=== PATIENT | female | born 1965 | race Caucasian/White ===

== ENCOUNTER 2016-06-08 18:20 | Emergency (ER) | payer SELFPAY ==
[~2016-06-08] VITALS: Ht 182.9 cm; Wt 129.7 kg
[~2016-06-08 18:20] MED LIST: DOCU-144 PO; HYDR-905 PO; PANT40SU PO; TRAM100T27 PO
[2016-06-08 18:37] VITALS: Ht 182.9 cm; Wt 129.7 kg
== END 2016-06-08 20:51 | disposition left against medical advice (07) ==
LOC: E/R 18:20
DX: Z53.21 Procedure and treatment not carried out due to patient leaving prior to being seen by health care provider (principal)

== ENCOUNTER 2017-08-20 17:39 | Inpatient (IN) | END 2017-08-24 15:50 | disposition home or self-care (01) | DRG 354 ==

== ENCOUNTER 2018-11-14 11:38 | Emergency (ER) | payer OTHER ==
[~2018-11-14] VITALS: Ht 180.3 cm; Wt 126.2 kg
[~2018-11-14 11:38] MED LIST changes: +CYCL10TA7 PO; +DICL100G37 TOP; -DOCU-144 PO; +HYDR-3601 PO; +HYDR-4012 PO; -HYDR-905 PO; +LACT20SO2 PO; +LORA-444 PO; +LORA1TAB PO; +MELO15TA30 PO; +ONDA8TAB9 PO; -PANT40SU PO; +TRAZ-150 PO
[2018-11-14 11:59] VITALS: Ht 180.3 cm; Wt 126.2 kg
[2018-11-14] MEDS ORDERED: SOD CHLORIDE 0.9% 1,000 ML IV STA (12:36)
--- NOTE | 2018-11-14 12:43 | ERD ---
ER Documentation Chief Complaint Chief Complaint abdominal pain w/constipation x1wk HPI 53-year-old female with history of multiple abdominal and rectal surgeries presenting with lower abdominal pain that is sharp, intermittent, nonradiating, 10 out of 10. She has associated constipation for 1 week. She did pass gas yesterday but not today. Denies any nausea or vomiting. No fevers or chills. She does have problems with chronic constipation and has tried several medications at home without improvement. No dysuria or hematuria. No alleviating or exacerbating factors. ROS All systems reviewed and are negative except as per history of present illness. Medications Home Meds Active Scripts Lactulose* (Lactulose*) 20 Gm/30 Ml Solution, 20 GM PO Q6H for CONSTIPATION, #1 BOTTLE Prov:LEXI JORDAN MD 11/14/18 Reported Medications Diclofenac Sodium* (Voltaren* Gel) 1% -100 Gm Gel, 2 GM TOP PRN, #1 TUB 11/14/18 Ondansetron Hcl* (Zofran*) 8 Mg Tablet, 8 MG PO NEEDED PRN for NAUSEA AND OR VOMITING, TAB 11/14/18 Meloxicam* (Mobic*) 15 Mg Tablet, 15 MG PO DAILY, #30 TAB 11/14/18 Cyclobenzaprine Hcl* (Cyclobenzaprine Hcl*) 10 Mg Tablet, 10 MG PO NEEDED, #60 TAB 11/14/18 Hydrocodone/Acetaminophen ([place] 7.5-325 Tablet) 1 Each Tablet, 1 EACH PO BID MT N for PRN, TAB 11/14/18 Trazodone Hcl* (Desyrel*) 100 Mg Tab, 100 MG PO QHS, #30 TAB 11/14/18 Lorazepam* (Lorazepam*) 1 Mg Tablet, 1 MG PO BID PRN for ANXIETY, #30 TAB 11/14/18 Discontinued Reported Medications Lorazepam* (Ativan*) 2 Mg Tablet, 2 MG PO HS PRN for SLEEP, #30 TAB 08/19/17 Tramadol Hcl* (Tramadol* ER) 100 Mg Tab.er.24h, 100 MG PO DAILY, #30 TAB 08/19/17 Discontinued Scripts Hydrocodone Bit-Acetaminophen (Hydrocodone Bit-APAP) 5-325MG Tablet, 1 TAB PO Q6H PRN for PAIN LEVEL 6-10, #40 TAB Prov:RICHIE TORRES 08/24/17 Allergies Allergies: Coded Allergies: No Known Allergy (Unverified , 11/14/18) PMhx/Soc History of Surgery: Yes (hysterectomy, gallbladder sugery, vaginal repair, hernia repair) Anesthesia Reaction: No Hx Neurological Disorder: No Hx Respiratory Disorders: No Hx Cardiac Disorders: No Hx Psychiatric Problems: No Hx Miscellaneous Medical Probl: No Hx Alcohol Use: Yes Hx Substance Use: No Hx Tobacco Use: No FmHx Family History: No diabetes Physical Exam Vitals Vital Signs Date Temp Pulse Resp B/P (MAP) Pulse Ox O2 O2 Flow FiO2 Time Delivery Rate 11/14/18 98.2 75 18 127/83 98 Room Air 16:27 (98) 11/14/18 75 111/93 97 14:30 (99) 11/14/18 98.0 74 16 121/72 99 Room Air 13:30 (88) 11/14/18 97.6 101 18 146/102 97 11:59 (117) Physical Exam Const: No acute distress, well-appearing, nontoxic Head: Atraumatic Eyes: Normal Conjunctiva ENT: Normal External Ears, Nose and Mouth. Neck: Full range of motion. No meningismus. Resp: Clear to auscultation bilaterally Cardio: Regular rate and rhythm, no murmurs Abd: Soft, tender to palpation in the lower abdomen with no palpable masses. No rebound or guarding. Non distended. Normal bowel sounds Skin: No petechiae or rashes Back: No midline or flank tenderness Ext: No cyanosis, or edema Neur: Awake and alert Psych: Normal Mood and Affect Result Diagram: 11/14/18 1252 11/14/18 1252 Results 24 hrs Laboratory Tests Test 11/14/18 12:52 11/14/18 13:00 White Blood Count 9.0 10^3/ul Red Blood Count 4.60 10^6/ul Hemoglobin 13.2 g/dl Hematocrit 40.9 % Mean Corpuscular Volume 88.9 fl Mean Corpuscular Hemoglobin 28.7 pg Mean Corpuscular Hemoglobin Concent 32.3 g/dl Red Cell Distribution Width 12.6 % Platelet Count 274 10^3/UL Mean Platelet Volume 10.1 fl Immature Granulocytes % 0.400 % Neutrophils % 66.0 % Lymphocytes % 25.1 % Monocytes % 5.4 % Eosinophils % 2.4 % Basophils % 0.7 % Nucleated Red Blood Cells % 0.0 /100WBC Immature Granulocytes # 0.040 10^3/ul Neutrophils # 6.0 10^3/ul Lymphocytes # 2.3 10^3/ul Monocytes # 0.5 10^3/ul Eosinophils # 0.2 10^3/ul Basophils # 0.1 10^3/ul Nucleated Red Blood Cells # 0.0 10^3/ul Urine Color YELLOW Urine Clarity CLEAR Urine pH 6.0 Urine Specific [place] 1.009 Urine Ketones NEGATIVE mg/dL Urine Nitrite NEGATIVE mg/dL Urine Bilirubin NEGATIVE mg/dL Urine Urobilinogen NEGATIVE mg/dL Urine Leukocyte Esterase NEGATIVE [place]/ul Urine Hemoglobin NEGATIVE mg/dL Urine Glucose NEGATIVE mg/dL Urine Total Protein NEGATIVE mg/dl Sodium Level 143 mmol/L Potassium Level 4.3 mmol/L Chloride Level 109 mmol/L Carbon Dioxide Level 26 mmol/L Anion Gap 8 Blood Urea Nitrogen 8 mg/dl Creatinine 0.61 mg/dl Est Glomerular Filtrat Rate mL/min > 60 mL/min Glucose Level 113 mg/dl Calcium Level 9.0 mg/dl Total Bilirubin 0.3 mg/dl Direct Bilirubin 0.00 mg/dl Indirect Bilirubin 0.3 mg/dl Aspartate Amino Transf (AST/SGOT) 24 IU/L Alanine Aminotransferase (ALT/SGPT) 18 IU/L Alkaline Phosphatase 61 IU/L Total Protein 6.7 g/dl Albumin 3.9 g/dl Globulin 2.80 g/dl Albumin/Globulin Ratio 1.39 Lipase 85 U/L POC Beta HCG, Qualitative NEGATIVE Current Medications Medications Dose Sig/Nickolas Start Time Status Last (Trade) Ordered Route PRN Stop Time Admin Dose Reason Admin Sodium 1,000 ml @ Q1H STAT 11/14/18 DC 11/14/18 Chloride 1,000 mls/hr IV 12:36 13:08 11/14/18 13:35 1 mg ONCE STAT 11/14/18 DC 11/14/18 Hydromorphone IV 12:52 13:08 HCl 11/14/18 12:54 (Dilaudid) Ondansetron 4 mg ONCE STAT 11/14/18 DC 11/14/18 HCl (Zofran IV 12:52 13:08 Inj) 11/14/18 12:54 Lactulose 100 ml ONCE ONCE 11/14/18 DC 11/14/18 (Lactulose MT 14:00 15:36 Enema) 11/14/18 14:01 0.5 mg ONCE STAT 11/14/18 DC 11/14/18 Hydromorphone IV 14:23 14:28 HCl 11/14/18 14:24 (Dilaudid) Procedures/MDM Patient is presenting with lower abdominal pain. Differential includes but is not limited to colitis, diverticulitis, bowel obstruction, constipation, perforated viscus. Labs are done and were unremarkable. CT of the abdomen and pelvis was done and did not show any evidence of acute surgical abdomen. She do es have evidence of a fecal impaction. Lactulose enema was done with little output. However the patient's pain is well controlled. I recommended a trial of oral lactulose outpatient. If her symptoms are to worsen, advised to return to the ER immediately. Follow-up with PCP was recommended as well to discuss her problems with constipation and to see if there are other medication she can be on daily to prevent this. Patient understands discharge plan. Discharged in stable condition. Patient's blood pressure was elevated (>120/80) but appears stable without evidence of hypertension emergency or urgency. The patient was counseled about the risks of hypertension and urged to pursue outpatient monitoring and therapy within a week with their primary care physician. Departure Diagnosis: Primary Impression: Constipation Constipation type: outlet dysfunction constipation Qualified Codes: K59.02 - Outlet dysfunction constipation Additional Impression: Fecal impaction Condition: Stable LEXI JORDAN MD Nov 14, 2018 12:43
[2018-11-14] MEDS ORDERED: ONDANSETRON 4 MG INJ IV STA (12:52)
[2018-11-14] MEDS ORDERED: HYDROmorphONE 1 MG/ML SYG IV STA (12:52)
[2018-11-14] MEDS ORDERED: LACTULOSE ENEMA 1,000 ML BTL PR ONE (14:00)
[2018-11-14] MEDS ORDERED: HYDROmorphONE 0.5 MG/0.5 ML SYG IV STA (14:23)
[2018-11-14 16:27] VITALS: BP 127/83; PULSE 75; RESP 18
== END 2018-11-14 16:28 | disposition home or self-care (01) ==
LOC: E/R 11:38
DX: K59.02 Outlet dysfunction constipation (principal)
CPT/HCPCS: 74176; 80053; 81003; 81025; 83690; 85025; J1170; J2405; J7030; Z7610; 36415; 96374; 96375; 96376